=== PATIENT | male | born 1965 | race Caucasian/White ===

== ENCOUNTER → 2023-10-22 06:26 | Day surgery (SDC) | payer BC, SELFPAY | LOC: GI 06:26 | PROVIDERS: ATTENDING PHYSICIAN Specialist | DX: K22.2 Esophageal obstruction (principal); R13.10 Dysphagia, unspecified | CPT/HCPCS: 43249 ==

== ENCOUNTER → 2023-12-02 12:00 | Outpatient (REF) | payer BC, SELFPAY | LOC: DHSLP 12:00 | PROVIDERS: ATTENDING PHYSICIAN Internal Medicine Critical Care Medicine; FAMILY PHYSICIAN Internal Medicine | DX: G47.33 Obstructive sleep apnea (adult) (pediatric) (principal) | CPT/HCPCS: 95800 ==

== ENCOUNTER → 2024-06-30 07:30 | Outpatient (REF) | payer BC, SELFPAY | LOC: PAVMRI 07:30 | PROVIDERS: ATTENDING PHYSICIAN Physical Medicine & Rehabilitation; FAMILY PHYSICIAN Internal Medicine | DX: M77.12 Lateral epicondylitis, left elbow (principal) | CPT/HCPCS: 73221 ==

== ENCOUNTER 2024-07-24 09:50 | Emergency (ER) | payer BC, SELFPAY ==
[2024-07-24 09:56] VITALS: BP 118/72
--- NOTE | 2024-07-24 11:27 | ED.GENMED ---
History of Present Illness
General
Chief Complaint: Fever
Source: patient
Exam Limitations: none
Time Seen by Provider: 07/24/24 10:56
Nursing documentation reviewed up to this point in time: agreed with
History of Present Illness
History of Present Illness:
58-year-old male presents Emergency Department due to fever, rash, body aches, headache. He recently returned from a trip to [place], where he was bit by multiple mosquitoes, and was staying with other people who had dengue fever with similar
symptoms.
Past History
Past History
ED Past Medical History: Arrthythmia, GERD and Hypercholesterolemia
ED Past Surgical History: Other (hernia bilateral)
Social History
Tobacco: Non-smoker
Alcohol: None
Drug: None
Living: with family
Review of Systems
Review of Systems
Allergies reviewed?: Yes
All Other Systems: Not applicable
Constitutional: Reports fever
EENT: Reports no symptoms
Respiratory: Reports no symptoms
Cardiac: Reports no symptoms
ABD/GI: Reports no symptoms
: Reports no symptoms
Musculoskeletal: Reports muscle pain
Skin: Reports no symptoms
Neurological: Reports headache
Endocrine: Reports no symptoms
Hematologic/Lymphatic: Reports no symptoms
Psychiatric: Reports no symptoms
Phy Exam
Physical Exam
Physical Exam:
Physical Exam
General: no apparent distress, not acutely ill
Neck: supple. no meningeal signs. normal posterior pharynx
Heart: s1/s2 regular rate and rhythm, no murmur. equal radial
pulses.
HEENT: Pupils equal round reactive to light, EOMI
Lungs: no acute respiratory distress. clear bilaterally
Abdomen: normal bowel sounds. not tender. no CVAT
Neuro: alert and oriented. no focal neurological deficits cranial nerves II through XII intact
Skin: Macular rash on trunk
Psychiatric: well kept. interactive and cooperative
Extremities: no edema. no calf tenderness. negative homans. good distal pulses
Course
Orders/Labs/Results
Orders:
Orders
07/24/24 11:24
IV Insert/Care/Rem.- Treatment PRN
07/24/24 11:26
Add On- LAB Urgent
Tests Added?: dengue PCR, Dengue IgG, dengue IgM
07/24/24 12:07
COVID-19 Antigen Urgent
Source: Nasal Swab
Complete Blood Count/With Diff Urgent
Comprehensive Metabolic Panel Urgent
Blood Culture Q30M
AYESHA Source: Blood/Venous
Specimen Description:
Blood Parasites Urgent
AYESHA Source: Blood/Venous
Specimen Description:
Influenza A+B Rapid Molecular Urgent
AYESHA Source: Nasal Swab
Specimen Description:
07/24/24 12:09
Blood Culture Q30M
AYESHA Source: Blood/Venous
Specimen Description:
07/24/24 12:59
Add On- LAB Urgent
Tests Added?: cbc w/ diff
07/24/24 14:58
PTT Routine
Abnormal Lab Results
07/24/24
12:07
WBC 2.0 L* 10^3/uL
(4.8-10.8)
Plt Count 121 L 10^3/uL
(130-400)
Absolute Lymphs (auto) 0.3 L 10^3/uL
(1.2-3.4)
Neutrophils % 78.8 H %
(42.2-75.2)
Lymphocytes % 12.3 L %
(20.5-51.1)
07/24/24 12:07
07/24/24 12:07
Vital Signs
Initial and Last Documented VS:
Initial Vital Signs
Temp Pulse Resp BP Pulse Ox
99.7 F 76 16 118/72 98
07/24/24 09:56 03/30/25 09:56 07/24/24 09:56 07/24/24 09:56 07/24/24 09:56
Last Documented Vital Signs
Temp Pulse Resp BP Pulse Ox
99.7 F 67 16 139/92 98
07/24/24 09:56 07/24/24 14:58 07/24/24 14:58 07/24/24 14:58 07/24/24 14:58
MDM/Problems Addressed
Differential Diagnosis Includes:
Dengue fever, COVID, influenza
MDM/Problems Addressed:
58-year-old male with suspected dengue fever. Vital signs stable. Offered admission to patient, he declines. Follow-up with primary care.
*Pulse Oximetry
Patient hypoxic: no
*Critical Care Note
Total Time (30-74mins, 75-104mins- exclusive of procedures): Not Applicable
Patient Management
Social determinants of health affecting care: Living situation and Strong social support
Escalation/DeEscalation of care consider admission/obs:
Admit indicated, however patient declines
ED Attending Note
-
Portions of this chart may have been created with voice recognition software.� Occasional wrong word or��sound alike� substitutions may have occurred due to the inherent limitations of voice recognition software.
Discharge Plan
Departure
Patient Disposition: Home (Routine Discharge)
Date of Disposition: 07/24/24
Time of Disposition: 14:31
Admit to: Med/Surg
Presentation/result/management discussed w/ accepting MD/DO: Hospitalist
Patient with high blood pressure during this ER visit?: Yes
Condition: Good
Discharge Problem:
Suspected dengue fever
Instructions: Fever, Adult (DC)
Prescriptions:
No Action
escitalopram oxalate [Lexapro] 10 mg Tablet
10 mg PO DAILY
omeprazole 20 mg Tablet,Delayed Release (Dr/Ec)
20 mg PO DAILY
acetaminophen [Tylenol] 325 mg Tablet
650 mg PO Q6HPRN PRN (Reason: mild pain)
rosuvastatin [Crestor] 5 mg Tablet
5 mg PO QPM
tadalafil 5 mg Tablet
5 mg PO DAILY
Referrals:
José Miguel Bañuelos MD [Family Provider] - Call in 1-3 days for appt
Interventions
Interventions:
*Risk Screen - Suicide Last Done: 07/24/24 10:49
*General Assessment Last Done: 07/24/24 12:11
*Neglect/Abuse Screening Last Done: 07/24/24 10:49
*ED- Fall Risk Assessment Last Done: 07/24/24 10:49
*ED COVID-19 Vaccine History Last Done: 07/24/24 10:49
ED- Neurological Assessment Last Done: 07/24/24 12:35
ED-Skin Assessment Last Done: 07/24/24 12:35
Discharge Date and Time
Print Language: [place]
[2024-07-24 12:11] VITALS: BMI 30.7
[2024-07-24 12:13] VITALS: BP 130/80
[2024-07-24 12:43] LABS: COVID-19 Antigen Negative (Negative)
[2024-07-24 12:46] LABS: ALT (SGPT) 25 U/L (0-50); AST (SGOT) 26 U/L (17-59); Albumin 4.7 g/dl (3.5-5.0); Alkaline Phosphatase 61 U/L (38-126); Blood Urea Nitrogen 19 mg/dl (9-20); Calcium 9.6 mg/dl (8.4-10.2); Carbon Dioxide 29 mmol/L (22-30); Chloride 105 mmol/L (98-107); Estimated Creatinine Clearance 80 ml/min; Glucose 99 mg/dl (70-99); Potassium 4.2 mmol/L (3.5-5.1); Sodium 139 mmol/L (135-145); Total Bilirubin 0.6 mg/dl (0.2-1.3); Total Protein 7.2 g/dl (6.3-8.2); eGFR > 60.00
[2024-07-24 13:47] LABS: % Lymphocytes 12.3 % (20.5-51.1); % Monocytes 5.9 % (1.7-9.3); % Neutrophils 78.8 % (42.2-75.2); Absolute Eosinophils 0.1 10^3/uL (0-0.7); Absolute Lymphocytes 0.3 10^3/uL (1.2-3.4); Absolute Monocytes 0.1 10^3/uL (0.1-0.6); Absolute Neutrophils 1.6 10^3/uL (1.4-6.5); Hematocrit 45.5 % (39.0-52.0); Hemoglobin 15.4 g/dL (13.0-18.0); Mean Corp Hgb Conc. 33.8 g/dL (33.0-37.0); Mean Corpuscular Volume 88.5 fL (80.0-94.0); Mean Platelet Volume 9.4 fL (7.4-10.4); Nucleated Red Blood Cells % 0 % (-); Platelet Count 121 10^3/uL (130-400); Red Blood Cell Count 5.14 10^6/uL (4.70-6.10); Red Cell Dist. Width 12.8 % (11.5-14.5)
[2024-07-24 14:58] VITALS: BP 139/92
== END 2024-07-24 15:14 | disposition home or self-care (01) ==
LOC: EMR 09:50
PROVIDERS: EMERGENCY PHYSICIAN Emergency Medicine; FAMILY PHYSICIAN Internal Medicine
DX: R50.9 Fever, unspecified (principal); R21 Rash and other nonspecific skin eruption; R51.9 Headache, unspecified; E78.00 Pure hypercholesterolemia, unspecified; Z11.52 Encounter for screening for COVID-19
CPT/HCPCS: 99283; 80053; 85025; 87015; 87040; 87207; 87502; 87811

== ENCOUNTER → 2024-11-08 15:17 | Outpatient (REF) | payer BC, SELFPAY | LOC: HWRAD 15:17 | PROVIDERS: ATTENDING PHYSICIAN Internal Medicine | DX: R10.11 Right upper quadrant pain (principal); R16.0 Hepatomegaly, not elsewhere classified | CPT/HCPCS: 76700 ==

== ENCOUNTER → 2025-04-10 12:45 | Outpatient (REF) | payer SELFPAY | LOC: HWRAD 12:45 | PROVIDERS: ATTENDING PHYSICIAN Internal Medicine | DX: E78.00 Pure hypercholesterolemia, unspecified (principal); C61 Malignant neoplasm of prostate; Z82.49 Family history of ischemic heart disease and other diseases of the circulatory system | CPT/HCPCS: 75571 ==